=== PATIENT | female | born 2005 | race Caucasian/White ===

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

== ENCOUNTER 2025-02-09 17:47 | Emergency (ER) | payer SELFPAY ==
[2025-02-09 17:48] VITALS: BP 160/99; PULSE 112; RESP 12; TEMP 37.3; O2SAT 98
--- NOTE | 2025-02-09 17:52 | ED.GENADUL_ITS ---
Discharge Plan Discharge Details Chief Complaint: PsychEval Primary Care Provider: Karissa Rasmussen ED Provider: Tyler Dan Home Meds and New Rx's Prescriptions: No Action No Known Home Meds HPI General Date/Time Provider Initiated Documentation: 02/09/25 17:52 . HPI Narrative: 19 year-old female presents to ED today by POV/ambulating with a chief complaint of possible concussion- was banging her head on the wall today x4 times with onset around 7 hours ago. Patient also endorses acute on chronic suicidal ideations without specific plan. Quality described as feels hopeless due to some financial circumstances, has only $2,000 to her name, needs a car, only has housing until June, no radiation to visual changes, LOC, post-headstrike amnesi a, numbness/tingling, weakness, slurred speech, other pain to torso/chest/abdomen. Severity is described as moderate for fatigue, worse than normal for SI. Palliating factors include nothing specific - does identify having good relationship with her roommates. Provoking factors include nothing specific. Patient not anticoagulated. Related Data Home Medications Medication Instructions Recorded Confirmed Unknown [No Known Home Meds] 05/20/24 1 04/11/24 Allergies Allergy/AdvReac Type Severity Reaction Status Date / Time amoxicillin (From Amoxil) Allergy Intermediate Dizziness/L Verified 02/09/25 17:52 ighthead General Stated Complaint: PsychEval DONOVAN: 2 Review of Systems All systems reviewed & are unremarkable except as noted in HPI and below Exam Narrative Exam Narrative: GENERAL APPEARANCE: Well-nourished, non-toxic, awake and alert, atraumatic, no acute distress. SKIN: Warm, pink, dry, intact, without rashes/lesions/ulcerations. HEAD: Normocephalic, atraumatic-no scalp hematoma, no Chong sign, normal hair distribution for gender/age. EYES: Normal conjunctiva, no exudates on lids/lashes, EOMs intact without nystagmus ENT: Nares patent, no circumoral cyanosis, no facial swelling NECK: Supple, trachea midline, painless cervical ROM, no midline cervical tenderness LUNGS/CHEST: Non-labored respirations, normal A/P diameter, symmetrical expansion, no chest wall deformity HEART (CV/PV): No peripheral edema, no JVD. ABDOMEN: Soft, non-distended, no guarding. MSK: Normal ROM, no swelling/deformity to bilateral UEs or LEs, moving all extremities without weakness, no cyanosis, spine midline without tenderness, normal curvature. NEURO: Mental Status AAOx4 - alert to person, place, time, events No facial droop, no forehead involvement, no dysmetria with [id number] or heel rice Motor: No focal weakness - strength 5/5 in bilateral UEs and LEs, proximal and distal, symmetric. Sensory: sensation intact to light touch globally. Gait normal: patient ambulated without ataxia into ED room. PSYCH: dysthymic, cooperative, pleasant, appropriate speech Course Vital Signs Vital signs: Vital Signs Temperature 37.3 C 02/09/25 17:48 Pulse 112 H 02/09/25 17:48 Respiratory Rate 12 02/09/25 17:48 Blood Pressure 160/99 H 02/09/25 17:48 Pulse Oximetry 98 02/09/25 17:48 Temperature 37.3 C 02/09/25 17:48 Temperature Source Temporal Artery Scan 02/09/25 17:48 Pulse 112 H 02/09/25 17:48 Respiratory Rate 12 02/09/25 17:48 Blood Pressure 160/99 H 02/09/25 17:48 Blood Pressure Position Sitting 02/09/25 17:48 Pulse Oximetry 98 02/09/25 17:48 Oxygen Delivery Method Room Air 02/09/25 17:48 Oxygen Flow Rate 0 02/09/25 17:48 Medical Decision Making This dictation utilizes [id number] dictation software and may contain unedited grammatical errors. 19 year-old female presents to ED today by POV/ambulating with a chief complaint of possible concussion- was banging her head on the wall today x4 times with onset around 7 hours ago. Patient also endorses acute on chronic suicidal ideations without specific plan. Quality described as feels hopeless due to some financial circumstances, has only $2,000 to her name, needs a car, only has housing until June, no radiation to visual changes, LOC, post-headstrike amnesia, numbness/tingling, weakness, slurred speech, other pain to torso/chest/abdomen, nausea or vomiting. Severity is described as moderate for fatigue, worse than normal for SI. Palliating factors include nothing specific - does identify having good relationship with her roommates. Provoking factors include nothing specific. Patients' medical history: Endorses chronic SI. Family and social history: Lives with 3 roommates states no firearms in the home. Pertinent exam findings / vital signs include neuro intact, no nystagmus with EOM testing, no dysmetria with cerebellar testing, no focal weakness, benign cardiopulmonary status, no Chong sign or periorbital ecchymosis, no scalp hematoma. Differential / pathologies of concern include concussion syndrome, suicidal ideation. Diagnostic studies of: - UDS -UDS positive for THC Interventions of: -Cleared for [facility]. ED Course/Assessment/Plan: 19-year-old female is being her head and off wall x 4 earlier today endorsing fatigue and headache but having no significant concussive syndrome or red flags for internal head injury with greater than 7-hour onset, endorses acute on chronic SI, is employed and has 3 roommates who she enjoys living with is stressed out about financial situation of having not enough money needing to purchase a vehicle, she has no other physical complaints, was cleared for evaluation by [facility] human services. [facility] is not evaluated the patient at time of signout. Patient signed out to EM attending Dr. Truong. Disposition of Suicidal Ideation. Patient verbalized understanding of the plan and return to ED criteria and engaged in shared decision making. Medical Records Medical records reviewed: Yes I reviewed the patient's medical records. Lab Data Lab results reviewed: Yes I reviewed the patient's lab results. Labs: Laboratory Tests Range/Units 02/09/25 18:15 Urine Opiates Screen (Negative) Negative Urine Methadone Screen (Negative) Negative Ur Barbiturates Screen (Negative) Negative Ur Tricyclics Screen (Negative) Negative Ur Amphetamines Screen (Negative) Negative U Benzodiazepines Scrn (Negative) Negative Urine Cocaine Screen (Negative) Negative Ur THC Screen (Negative) Positive A PFSH All Active Problems (Updated 06/20/24 @ 00:02 by BRANDIN MARINELLI) Right ankle instability (Acute) Medical History (Updated 06/20/24 @ 00:02 by BRANDIN MARINELLI) Hypomenorrhea/oligomenorrhea Closed right fibular fracture (11/11/20) Social History Smoking/Tobacco Use Status: Never Smoking risk assessment performed?: Yes Alcohol Intake: never Drug use: Never Substance use type: does not use Housing: house Current gender identity: female Do you feel safe at home: Yes Do you feel safe in your relationship?: Yes Female Reproductive History Menstrual Age of Menarche: 12 Duration of menses: 3-5 days control method: abstinence History History 0 Para Hx # Term Pregnancies Multiple births Hx # Pregnancies Ectopic pregnancies AB induced Hx Number of Living Children AB spontaneous
[2025-02-09 18:44] LABS: Cannabinoids THC Positive (Negative)
--- NOTE | 2025-02-09 22:32 | ED.PSYCHBOAR ---
Date of service: 02/09/25 Time of Service: 22:32 Psychiatric Border Handoff Update Brief Story: 19-year-old female presented to the emergency department after self-injurious behavior. Medically cleared, awaiting [place] chest evaluation for safety planning and disposition. [facility] chest was consulted, practitioner Miri evaluated the patient found her amenable to safety planning, will follow-up in their office tomorrow morning at 10 AM, before referrals for medication management and therapy. Disposition: Home Clinical impression: Passive suicidal ideation Able to leave: yes Discharge Plan Disposition Patient Disposition: Home Discharge Details Clinical Impression: Passive suicidal ideations Primary Care Provider: Karissa Rasmussen ED Provider: Tyler Dan Home Meds and New Rx's Prescriptions: No Action No Known Home Meds Discharge Instructions Instructions: Suicide Prevention Additional Instructions: Please follow-up with [facility] chest as directed tomorrow morning at 10 AM in their office. Please follow-up with your primary care provider regarding your visit to the emergency department today. Be sure to discuss results of all test performed here today to include radiology, and laboratory testing as well as results for any pending cultures. Should your symptoms worsen, or if you develop new concerning symptoms, please return immediately emergency department for further evaluation.
--- NOTE | 2025-02-09 22:34 | PDOC.MHCN_ITS ---
Date of service: 02/09/25 Time of Service: 21:41 PHQ-9 Over the last 2 weeks, how often have you been bothered by any of the following problems? 1. Little interest or pleasure in doing things: nearly every day 2. Feeling down, depressed, or hopeless: nearly every day 3. Trouble falling or staying asleep, or sleeping too much: nearly every day 4. Feeling tired or having little energy: nearly every day 5. Poor appetite or overeating: nearly every day 6. Feeling bad about yourself - or that you are a failure or have let yourself and your family down: nearly every day 7. Trouble concentrating on things, such as reading the newspaper or watching television: nearly every day 8. Moving or speaking so slowly that other people could have noticed? - Or the opposite - being so fidgety or restless that you have been moving around a lot more than usual: several days 9. Thoughts that you would be better off or of hurting yourself in some way: more than half the days Total score: 24 If you checked off any problems, how difficult have these problems made it for you to do your work, take care of things at home, or get along with other people?: very difficult PHQ-9 Results: Positive Source: Developed by Drs. Michael Flynn, Rubina Boateng, Manuel Cesar and colleagues, with an educational dolly from [employer]. Suicide Severity Rate CSSRS Have you wished you were or wished you could go to sleep and not wake up?: Yes Have you actually had any thoughts of killing yourself?: Yes CSSRS2 Have you been thinking about how you might do this?: No Have you had these thoughts and had some intention of acting on them?: No Have you started to work out or worked out the details of how to kill yourself? Do you intend to carry out this plan?: No CSSRS3 Have you ever done anything, started to do anything or prepared to do anything to end your life?: No CSSRS4 Was this within the past three months?: No Screening Score Total Score: 4 Screening: Positive Mental Health Emergency Note Release NK release signed:: Yes Reason for Visit The client is unknown to [facility]. Per the clients report she has never received outpatient or inpatient mental health support. Today the client presents to [facility] ED stating that she became frustrated earlier and banged her head numerous times off from the wall. The client reports concern for concussion and also reports suicidal ideations. This data analyst report writer meets with the client via telehealth. In the last 2 weeks has the pt presented for ES prior to today?: No Client Information Client is: New Well Housed: Yes Non Suicidal Self Injury Current: Yes, Banging head on wall earlier History: yes, History of cutting- reports last time was 3 months ago. Safety Risk/Harm to Self or Others Current Ideation to Harm Self or Others: Yes to self. (Client reports passive SI- denies intent or plan) Intent: no, has no intent. Plan: no.does not have a plan. History of suicide attempt: No history of suicide attempt reported Risk: Does risk to harm exist?: No Duty to warn indicated: No Asssessment/Mental Status Appearance: Disheveled Attitude: Cooperative and Guarded Behavior: Unremarkable Speech: Soft Affect: Flat Mood: Sad, Stressed, Depressed and Anxious Thought process: Unremarkable Hallucinations: No Delusions: No Attention: Unremarkable Perception: Not impaired Orientation: Fully orientated Memory: Intact Insight: Fair Judgement: Fair Neurovegetative Symptoms Sleep: Decrease Appetitie: Decrease Interests: Decrease Energy: Decrease Libido: Not applicable Substance Use: Do you use nicotine?: No Have you used substances in the last 7 days?: No Additional Issues: Assaultive/Threatening Behavior: No Medical Concerns: No Client engaged in active self harm w/weapon: No Threatening to run away: No Child reported abuse/neglect: No Voluntarily presenting for services: Yes Domestic violence is a concern: No Extreme Psychosis or extreme behavior is present: No Impression The client is a 19 year old caucasion female that resides in [place], [place] with room mates. The client identifies as female and uses she/ her pronouns. 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 All screening tools are completed and all under represented categories are honored during the assessment. Client reports feeling overwhelmed this evening due to financial stress and reacted by banging her head numerous times against the wall, raising concern for potential concussion. She expresses passive suicidal ideations but denies any intent or plan associated with these thoughts. Additionally, the client describes experiencing poor sleep, a diminished appetite, and low energy levels. She acknowledges having a diagnosis of bi-polar disorder, anxiety, and depression but indicates that she has not been taking her medications due to lack of insurance. The client denies experiencing delusions as well as any auditory or visual hallucinations. Resources Reosurces reviewed and given:: 988 and [facility] Plan/Disposition Recommended Disposition: [facility] Services [facility] Services: Therapy. Plan: Pro-active safety plan in place. The client is going to come to [address] [place] [address] on 02/10 at 10a for in-person follow-up. Referral to case management, therapy, and medication management. 988 and Front porch reviewed with the client. Person reported agreement to plan: Yes Reports/communication Outcome discussed with: ED/Personnel (Verbal given to ED provider Dr. Huffman)
[2025-02-09 22:53] VITALS: BP 112/70; PULSE 100; RESP 18; TEMP 36.5; O2SAT 100
--- NOTE | 2025-02-10 00:28 | [facility].SBSAFE ---
Date of service: 02/09/25 Time of Service: 22:00 Rah-Brown Safety Plan Step 1: Warning signs 1.: I don't know what to do- feel out of control 2.: Tunnel Vision- Feel like everything is caving in at once 3.: Intrusive thoughts- not wanting to be alive Step 2: Internal Coping Strategies Things I can do to take my mind off my problems without contacting another person: 1.: Walking away from the situation 2.: Taking space 3.: Screaming or yelling Step 3: People and Social Settings People and social settings that provide distraction: 1. Name: Josefina at work 3. Place: [place] 4. Place: Work Step 4: Assistance People whom I can ask for help during a crisis: 1. Name: Josefina at work 2. Name: Kentrell Boo Step 5: Professionals/Agencies Professionals or agencies I can contact during a crisis: 1. Clinician/Agency Name: [facility] ES 1. 1. Emergency Contact: Kentrell Boo 3. Local Emergency Department: [facility] [address] [place] [address] [place] [address] 4. [facility] ([facility]) Mobile Crisis Suicide Prevention Lifeline Phone: 130 Step 6: Making the Environment Safer Making the environment safer (plan for lethal means safety): 1.: Nothing currently. Rah Ortiz Copyright Rah-Angel Safety Planning Intervention The Rah-Brown Safety Plan is copyrighted by Andria Monreal, PhD & Hussein Ortiz, PhD (2020). Individual use of the Rah-Brown Safety Plan form is permitted. Written permission from the authors is required for any changes to this form or use of this form in the electronic medical record. Additional resources are available from www.suicidesafetyplan.com.
== END 2025-02-09 23:15 | disposition home or self-care (01) ==
PROVIDERS: Physician Assistant; Emergency Provider Emergency Medicine Emergency Medical Services; PCP Nurse Practitioner Family
DX: R53.83 Other fatigue (principal); R45.851 Suicidal ideations
CPT/HCPCS: 99284; 99283; 81025; 00123; 80307; 96127

== ENCOUNTER 2025-03-09 09:19 | Emergency (ER) | payer SELFPAY ==
[2025-03-09 09:21] VITALS: BP 151/60; PULSE 98; RESP 18; TEMP 35.5; O2SAT 99
--- NOTE | 2025-03-09 09:39 | ED.GENADUL_ITS ---
Discharge Plan Disposition Patient Disposition: Home Discharge Details Clinical Impression: Acute streptococcal pharyngitis Primary Care Provider: Karissa Rasmussen ED Provider: Neno Joyce Home Meds and New Rx's Prescriptions: New penicillin V potassium 500 mg tablet 500 mg PO BID 10 Days Qty: 20 0RF Discharge Instructions Additional Instructions: You were seen in the emergency department for your sore throat. You are found to have a strep infection for which you are receiving antibiotics that you should take as directed. As we discussed if you develop difficulty swallowing cannot take your antibiotics as a result of nausea or vomiting or if you have any other concerns please return to the emergency department. Otherwise please follow-up with your primary care provider. For your pain please take medications as follows: 1. Take acetaminophen (Tylenol), 1,000 mg (two 500 mg tabs) every 6 hours [2. Take ibuprofen (Advil), 400 mg every 6 hours.] Stand Alone Forms: Portal Information, Work Release HPI General Date/Time Provider Initiated Documentation: 03/09/25 09:39 . HPI Narrative: MDM This is a quite well-appearing afebrile and not tachycardic 19-year-old female with strep pharyngitis in the setting of sore throat for which she will receive steroids, and 10-day course of penicillin 500 mg twice daily. No pain out of proportion to suggest necrotizing soft tissue infection. Good range of motion in neck making my suspicion low for retropharyngeal abscess. No nuchal rigidity nor headaches to suggest meningitis and so indication for lumbar puncture. Nontoxic so doubt bacterial tracheitis. Handling secretions making my suspicion lower for epiglottitis. Uvula midline so doubt peritonsillar abscess. Clear lungs and no hypoxia making my suspicion lower for pneumonia so I did not order chest x-ray. Not altered no vomiting to suggest subdural empyema. Patient has not been vomiting so I am not suspicious that she will be able to tolerate her antibiotics. Patient I discussed that she should return if she developed any shortness of breath any difficulty swallowing or any fevers. She understood her return indications and was discharged with an empiric trial of expectant outpatient management. HPI The patient presents for evaluation of a sore throat. She reports the onset of her symptoms 2 days ago, characterized by a sore throat. She has not experienced any fevers or been in contact with any sick individuals. Her immunization status is partially complete. She does not take any daily medications. She has not experienced any episodes of vomiting. She reports mild difficulty breathing, particularly when attempting to sleep. She does not have any issues with eating or drinking, although she experiences pain upon swallowing. She has not taken any medication today. She has no history of strep throat. She also reports no headaches. Exam General: Well-appearing in no acute distress speaking in complete sentences. Head: Normocephalic, atraumatic. Eye: Extraocular eye movements intact. No conjunctival injection. No scleral icterus. Ear, nose, mouth, throat: Mild posterior oropharynx erythema. Uvula midline. Moist mucous membranes. Normal voice, handling secretions normally. Neck: Trachea midline. No nuchal rigidity. Cardiovascular: Well-perfused distal extremities. Regular rate and rhythm. Respiratory: Nonlabored respiration. Clear lungs bilaterally. Gastrointestinal: Nondistended abdomen. Musculoskeletal: No edema. Moving all 4 extremities spontaneously. Skin: Normal for age and race, grossly normal temperature and turgor. No acute rash. Neurologic: Alert and appropriate, no apparent acute deficits. Psychiatric: Mood and manner are appropriate. Grooming and personal hygiene are appropriate. Related Data Home Medications ?Medication ?Instructions ?Recorded ?Confirmed penicillin V potassium 500 mg 500 mg PO BID 10 days #2 0 tabs 03/09/25 tablet Previous Rx's ?Medication ?Instructions ?Recorded penicillin V potassium 500 mg 500 mg PO BID 10 days #2 0 tabs 03/09/25 tablet Allergies Allergy/AdvReac Type Severity Reaction Status Date / Time amoxicillin (From Amoxil) Allergy Intermediate Dizziness/L Verified 03/09/25 09:23 ighthead General Stated Complaint: Sorethroat DONOVAN: 4 Course Vital Signs Vital signs: Vital Signs Temperature 35.5 C L 03/09/25 09:21 Pulse 98 H 03/09/25 09:21 Respiratory Rate 18 03/09/25 09:21 Blood Pressure 151/60 H 03/09/25 09:21 Pulse Oximetry 99 03/09/25 09:21 Temperature 35.5 C L 03/09/25 09:21 Temperature Source Tympanic 03/09/25 09:21 Pulse 98 H 03/09/25 09:21 Respiratory Rate 18 03/09/25 09:21 Blood Pressure 151/60 H 03/09/25 09:21 Blood Pressure Position Sitting 03/09/25 09:21 Pulse Oximetry 99 03/09/25 09:21 Oxygen Delivery Method Room Air 03/09/25 09:21 Oxygen Flow Rate 0 03/09/25 09:21 Pain Level 7 03/09/25 09:21 Lab/Test Results Lab/Test Results: POC Strep Test-CELSO(Rapid) Start: 03/09/25 09:26 Freq: .Rapid Strep Test Status: Active Protocol: Document 03/09/25 09:34 ELVA (Rec: 03/09/25 09:35 ELVA [id number]) Strep test-CELSO(Rapid)-POC POC-Strep test-CELSO ( Positive Rapid) POC-Strep test-CELSO (Rapid) Positive PFSH All Active Problems (Updated 03/09/25 @ 09:47 by Neno Joyce MD) Acute streptococcal pharyngitis (Acute) Passive suicidal ideations (Acute) Right ankle instability (Acute) Medical History (Updated 03/09/25 @ 09:47 by Neno Jyoce MD) Hypomenorrhea/oligomenorrhea Closed right fibular fracture (11/11/20) Social History Smoking/Tobacco Use Status: Never Smoking risk assessment performed?: Yes Alcohol Intake: never Drug use: Never Substance use type: does not use Housing: house Current gender identity: female Do you feel safe at home: Yes Do you feel safe in your relationship?: Yes Female Reproductive History Menstrual Age of Menarche: 12 Duration of menses: 3-5 days control method: abstinence History History 0 Para Hx # Term Pregnancies Multiple births Hx # Pregnancies Ectopic pregnancies AB induced Hx Number of Living Children AB spontaneous
[2025-03-09] MEDS: Acetaminophen 500 MG TAB 1000 MG PO (09:48)
[2025-03-09] MEDS: Penicillin V POTASSIUM 500 MG TAB PO (09:48)
[2025-03-09] MEDS: Dexamethasone 4 MG TAB 8 MG PO (09:48)
[2025-03-09 09:52] VITALS: BP 150/75; PULSE 83; RESP 18; O2SAT 100
== END 2025-03-09 09:56 | disposition home or self-care (01) ==
PROVIDERS: Emergency Provider Emergency Medicine; PCP Nurse Practitioner Family
DX: J02.0 Streptococcal pharyngitis (principal)
CPT/HCPCS: 87880; 99283; J8540

== ENCOUNTER 2025-04-07 08:32 | Emergency (ER) | payer SELFPAY ==
[2025-04-07 08:33] VITALS: BP 142/73; PULSE 110; RESP 15; TEMP 37.6; O2SAT 97
[2025-04-07 08:39] VITALS: BP 142/73; PULSE 110; RESP 15; TEMP 37.6; O2SAT 97
--- NOTE | 2025-04-07 08:46 | W.ED.GENAD ---
Discharge Plan Disposition Patient Disposition: Home Condition: Stable Discharge Details Clinical Impression: Closed head injury without concussion Primary Care Provider: Karissa Rasmussen ED Provider: Mary Heredia Home Meds and New Rx's Prescriptions: No Action No Known Home Meds Discharge Instructions Instructions: Head Injury Observation (DC), Minor Head Injury, Adult ED Additional Instructions: COVID flu and RSV is negative today. You may have headaches for the next week or so, please take Tylenol or Ibuprofen with food every 4-6 hours as needed for pain and swelling. You may apply ice. Follow up with primary care provider in 3-5 days. Return to ED sooner if any worsening headache, confusion, vomiting, blurry vision or concerns. Stand Alone Forms: Portal Information Referrals: Karissa Rasmussen [Primary Care Provider, Medicine] - 5 days Clinical Impression: Closed head injury without concussion HPI General Mode of arrival: ambulatory. Date/Time Provider Initiated Documentation: 04/07/25 08:34. Limitations to Documentation: no limitations. Information obtained by: patient, RN notes reviewed and old records reviewed. HPI Narrative: 19-year-old female presents to the ER with a chief complaint of mechanical slip and fall on the ice this morning. She slipped fell backwards hitting the back of her head. She denies any loss of consciousness to me. Denies any neck pain. No blurry vision or double vision. She does have a small hematoma noted to her occipital scalp. No laceration. She also notes a fever of 102 over the last couple of days. Denies any throat pain or ear pain. Related Data Home Medications ?Medication ?Instructions ?Recorded ?Confirmed Unknown [No Known Home Meds] 04/07/25 04/07/25 Allergies Allergy/AdvReac Type Severity Reaction Status Date / Time amoxicillin (From Amoxil) Allergy Intermediate Dizziness/L Verified 04/07/25 08:39 ighthead General Stated Complaint: Fever DONOVAN: 4 Review of Systems All systems reviewed & are unremarkable except as noted in HPI and below Constitutional Constitutional: Reports fever(s) and Reports headache(s) ENT Ears, Nose, Mouth, and Throat: Reports headache(s) Integumentary/Breasts Skin/Breast: Reports skin swelling (Occipital scalp) Neurologic Neurologic: Reports headache(s) Exam Narrative Exam Narrative: Constitutional: Alert and oriented x3. Appears stated age. Obese body habitus. Head: Normocephalic, small 2 cm in diameter hematoma noted. Eyes: Pupils PERRL, Red reflex noted, EOM's intact. Eyelids symmetrical without lesions, discharge, or swelling. ENT: Right external ear canal cerumen impacted, left TM within normal limits, external ear normal to inspection, no mastoid TTP, swelling, or erythema, Nasal turbinates WNL, no nasal discharge. Normal dentition, Posterior pharynx WNL, no exudate. Chest: RRR, Normal S1, S2, distal pulses intact. Resp: Lungs clear to auscultation bilaterally, no wheezes, rales, or rhonchi. Abdomen: Soft, non-distended, Normoactive bowel sounds all 4 quads. Musculoskeletal: Normal gait, Moves all 4 extremities without difficulty. Skin: No suspicious rashes or lesions. Capillary refill less than 2 sec. Neurologic: Cranial nerves II-XII intact. Alert and oriented x 3. Motor: No deficits noted. Sensory: Intact bilaterally all 4 extremities. Hematologic/Lymphatic: No ecchymosis, no lymphadenopathy. [facility] Head images:  1. Hematoma Course Vital Signs Vital signs: Vital Signs Temperature 37.6 C 04/07/25 08:33 Pulse 110 H 04/07/25 08:33 Respiratory Rate 15 04/07/25 08:33 Blood Pressure 142/73 H 04/07/25 08:33 Pulse Oximetry 97 04/07/25 08:33 Temperature 37.6 C 04/07/25 08:39 Temperature Source Oral 04/07/25 08:39 Pulse 110 H 04/07/25 08:39 Respiratory Rate 15 04/07/25 08:39 Blood Pressure 142/73 H 04/07/25 08:39 Blood Pressure Position Sitting 04/07/25 08:39 Pulse Oximetry 97 04/07/25 08:39 Oxygen Delivery Method Room Air 04/07/25 08:39 Oxygen Flow Rate 0 04/07/25 08:39 Pain Level 7 04/07/25 08:39 Medical Decision Making Due to no loss of consciousness, no severe mechanism of injury no vomiting or visual disturbances I will forego CT imaging at this time. Will swab for flu. Give a gram of Tylenol. Negative Covid Flu RSV, patient remained hemodynamically stable throughout remainder of stay, discharged with home care and observation instructions. This text was generated using [employer] system, please disregard any oddities of phrase or misspellings. PFSH All Active Problems (Updated 04/07/25 @ 09:25 by Mary Heredia NP) Closed head injury without concussion (Acute) Acute streptococcal pharyngitis (Acute) Right ankle instability (Acute) Medical History Hypomenorrhea/oligomenorrhea Closed right fibular fracture (11/11/20) Social History Smoking/Tobacco Use Status: Never Smoking risk assessment performed?: Yes Alcohol Intake: never Drug use: Never Substance use type: does not use Housing: house Current gender identity: female Do you feel safe at home: Yes Do you feel safe in your relationship?: Yes Female Reproductive History Menstrual Age of Menarche: 12 Duration of menses: 3-5 days control method: abstinence History History 0 Para Hx # Term Pregnancies Multiple births Hx # Pregnancies Ectopic pregnancies AB induced Hx Number of Living Children AB spontaneous
[2025-04-07] MEDS: Acetaminophen 500 MG TAB 1000 MG PO (08:50)
[2025-04-07 09:43] LABS: COVID-19 PCR Negative (Negative); RSV PCR Negative (Negative)
== END 2025-04-07 10:07 | disposition home or self-care (01) ==
PROVIDERS: Emergency Provider Registered Nurse Emergency; PCP Nurse Practitioner Family
DX: S09.90XA Unspecified injury of head, initial encounter (principal); W19.XXXA Unspecified fall, initial encounter
CPT/HCPCS: 99283; 99282; 87637